=== PATIENT | female | born 1975 ===

== ENCOUNTER 2018-12-16 11:30 | Inpatient (IN) | payer OTHER ==
[~2018-12-16] VITALS: Ht 160 cm; Wt 91.2 kg
[2018-12-23] MEDS ORDERED: TRAM1TAB98 PO (06:36)
[2018-12-23] MEDS ORDERED: IBU600 MG PO (06:36)
== END 2018-12-23 10:25 | disposition home or self-care (01) | DRG 743 ==
LOC: O/R 11:30 → SURH 12-21 11:30 → OB/GYN 12-21 16:11
PROVIDERS: ADMIT Obstetrics & Gynecology Gynecology
PROC: 0UT70ZZ Resection of Bilateral Fallopian Tubes, Open Approach (ICD-10-PCS; 2018-12-21)
PROC: 0UT90ZZ Resection of Uterus, Open Approach (ICD-10-PCS; principal; 2018-12-21 12:30)
DX: D25.1 Intramural leiomyoma of uterus (principal); D25.0 Submucous leiomyoma of uterus; D25.2 Subserosal leiomyoma of uterus; N83.8 Other noninflammatory disorders of ovary, fallopian tube and broad ligament; N92.0 Excessive and frequent menstruation with regular cycle